=== PATIENT | female | born 1995 | race Asian ===

== ENCOUNTER 2020-09-30 21:39 | Emergency (ER) | payer OTHER ==
[~2020-09-30] VITALS: Ht 160 cm; Wt 59.6 kg
[2020-09-30 21:58] VITALS: BP 114/67
== END 2020-09-30 23:08 | disposition home or self-care (01) ==
LOC: ER 21:42
DX: S61.230A Puncture wound without foreign body of right index finger without damage to nail, initial encounter (principal); X58.XXXA Exposure to other specified factors, initial encounter; Y93.89 Activity, other specified; Y92.89 Other specified places as the place of occurrence of the external cause; Y99.8 Other external cause status
CPT/HCPCS: 99281; 99283

== ENCOUNTER 2021-01-19 08:35 | Outpatient (CLI) | payer OTHER | END 2021-01-19 23:59 | disposition home or self-care (01) | LOC: LAB 08:35 | PROVIDERS: ATTEND Internal Medicine Infectious Disease | DX: Z20.822 Contact with and (suspected) exposure to COVID-19 (principal) | CPT/HCPCS: 87635; C9803 ==